=== PATIENT | male | born 1985 | race Caucasian/White ===

== ENCOUNTER 2020-12-18 18:25 | Emergency (ER) | payer OTHER, SELFPAY ==
[2020-12-18] VITALS (14 sets, daily range): BP systolic 133–162; BP diastolic 80–111; PULSE 68–81; RESP 15–23; TEMP 36.6; O2SAT 95–99
--- NOTE | ~2020-12-18 | CT_ITS ---
EXAMINATION: CT abdomen pelvis w con DATE: 12/18/2020 22:06 INDICATION: Left-sided abdominal pain TECHNIQUE: Computed tomography (CT) of the abdomen and pelvis was performed with 100 cc Omnipaque 350 intravenous contrast. The dose-length product was 1175.83 mGy-cm. Automated exposure control and ite rative reconstruction technique were employed. COMPARISON: None. FINDINGS: Lung bases are normal. Heart size normal. No significant pleural or pericardial effusion. N o significant vascular abnormality. No lymphadenopathy. No free air or free fluid. Nonobstructive bowel gas pattern. Colonic diverticulosis without evidence for diverticulitis. Normal appendix. Fatty infiltration of the liver. The spleen, pancreas, adrenal glands and kidneys are unrem arkable. Gallbladder is present. No acute osseous abnormality. There is mild lumbar spondylosis at L5 -S1. IMPRESSION: 1. No acute abdominal abnormality. Reviewed, dictated and finalized at location A.
[2020-12-18 19:21] LABS: Basophils Absolute Auto 0.1 K/mm3 (0.0-0.1); Basophils Percent Auto 0.7 % (0.2-1.2); Eosinophils Absolute Auto 0.2 K/mm3 (0-0.3); Hemoglobin 14.8 g/dL (14.0-18.0); Immature Granulocyte Absolute 0.07 K/mm3 (0.00-0.031); Immature Granulocyte Percent A 0.9 % (0-0.5); Lymphocytes Absolute Auto 1.88 K/mm3 (0.9-3.2); Lymphocytes Percent Auto 23.1 % (18.3-44.2); Mean Corpuscular HGB Conc 35.2 g/dl (32-36); Mean Corpuscular Hemoglobin 32.6 pg (26-34); Mean Corpuscular Volume 92.5 fl (80-100); Mean Platelet Volume 8.9 fl (7.4-10.4); Monocytes Absolute Auto 0.7 K/mm3 (0.1-0.6); Monocytes Percent Auto 8.9 % (2.6-8.5); Neutrophils Absolute Auto 5.2 K/mm3 (1.3-6.7); Neutrophils Percent Auto 64.4 % (45.5-73.1); Platelet Count Result 260 k/mm3 (150-375); Red Blood Count 4.54 M/mm3 (4.6-6.20); Red Cell Distribution Width 11.7 % (11.5-14.5); White Blood Count 8.1 K/mm3 (4.5-10.0)
[2020-12-18 19:34] LABS: Alanine Aminotransferase 57 U/L (4-50); Alkaline Phosphatase 81 U/L (38-126); Anion Gap 12 mmol/L (8-16); Aspartate Amino Transferase 29 U/L (17-59); Bilirubin,Total 0.4 mg/dL (0.2-1.3); Blood Urea Nitrogen 15 mg/dL (9-20); Calcium 9.5 mg/dL (8.4-10.2); Carbon Dioxide 28 mmol/L (22-30); Chloride 99 mmol/L (98-107); Estimated CRCL calculation 162 ml/min; Estimated Glomerular Filt Rate > 60; Glucose 148 mg/dL (65-110); Lipase 248 U/L (23-300); Potassium 3.8 mmol/L (3.4-5.0); Sodium 139 mmol/L (137-145)
--- NOTE | 2020-12-18 20:36 | PC.NURSE ---
Addendum entered by Kari Holly RN 12/18/20 21:03: Pt also reports 5-6 episodes of diarrhea yesterday and pain generalized to entire abd. Original Note: Pt here c/o 2 days of abd pain that radiates to his entire abd and wraps around both sides of his back. no s/s of distress.
--- NOTE | 2020-12-18 20:38 | ED.GENADULT ---
HPI - General Adult General Chief complaint: Abdominal Pain Stated complaint: ABd pain Time Seen by Provider: 12/18/20 20:25 History of Present Illness HPI narrative: Patient is a 35-year-old male who presents ER with abdominal pain x2 days. Located in the epigastrium and left side of the abdomen. Radiates to his back. Associate with diarrhea x7 2 days ago. He took some Imodium. He has no fevers or chills or sweats. No urinary frequency urgency or dysuria. No hematuria, reports has history of hematuria that had no diagnosis. No known sick contacts. Reports nausea without vomiting. Has had decreased appetite. Related Data Allergies Allergy/AdvReac Type Severity Reaction Status Date / Time clarithromycin Allergy Unknown Rash Verified 09/01/16 17:24 Review of Systems Review of Systems: All systems reviewed & are unremarkable except as noted in HPI and below Constitutional: Constitutional: Denies chills, Denies fever(s) and Denies weakness ENT: Denies nasal congestion and Denies sore throat Cardiovascular: Cardiovascular: Denies chest pain, Denies rapid heart rate and Denies radiating jaw, neck or arm pain Gastrointestinal: Gastrointestinal: Reports abdominal pain, Reports diarrhea, Reports nausea and Denies vomiting Genitourinary: Genitourinary: Denies oliguria, Denies dysuria, Denies testicular pain and Denies urinary frequency PMFSH Past Medical History Medical History (Updated 12/18/20 @ 22:55 by Frederick Sellers MD) Healthy adult male Surgical History Surgical History (Updated 12/18/20 @ 20:40 by Frederick Sellers MD) No history of previous surgery Social History Social History (Updated 12/18/20 @ 20:40 by Frederick Sellers MD) Smoking status: Never smoker Exam Narrative: GENERAL: Well-appearing, well-nourished, and in no acute distress. HEAD: Normocephalic, atraumatic. EYES: PERRL and EOMI. CHEST: Clear to auscultation. No respiratory distress. HEART: Regular rate and rhythm. Normal peripheral pulses. ABDOMEN: Soft, mild tenderness left lower quadrant, nondistended. EXTREMITIES: Normal range of motion. No edema. SKIN: Warm, dry, no rash. NEURO: Alert and oriented x3. PSYCH: Normal mood and affect. Course Course Emergency Course: Unremarkable evaluation. Informed the results. Discharge home Vital Signs Vital signs: Vital Signs Temperature 97.8 F 12/18/20 19:11 Pulse Rate 80 12/18/20 19:11 Respiratory Rate 18 12/18/20 19:11 Blood Pressure 162/111 H 12/18/20 19:11 Pulse Oximetry 99 12/18/20 19:11 Temperature 97.8 F 12/18/20 19:11 Pulse Rate 76 12/18/20 22:16 Respiratory Rate 17 12/18/20 22:16 Blood Pressure 133/83 12/18/20 22:16 Pulse Oximetry 99 12/18/20 22:16 Medical Decision Making Vital Signs Vital Signs: Vital Signs Temperature 97.8 F 12/18/20 19:11 Pulse Rate 80 12/18/20 19:11 Respiratory Rate 18 12/18/20 19:11 Blood Pressure 162/111 H 12/18/20 19:11 Pulse Oximetry 99 12/18/20 19:11 Temperature 97.8 F 12/18/20 19:11 Pulse Rate 76 12/18/20 22:16 Respiratory Rate 17 12/18/20 22:16 Blood Pressure 133/83 12/18/20 22:16 Pulse Oximetry 99 12/18/20 22:16 Lab Data Result diagrams: 12/18/20 19:14 12/18/20 19:14 Labs: Lab Results 12/18/20 12/18/20 12/18/20 Range/Units 19:14 19:14 20:43 WBC 8.1 (4.5-10.0) K/mm3 RBC 4.54 L (4.6-6.20) M/mm3 Hgb 14.8 (14.0-18.0) g/dL Hct 42.0 (42.0-52.0) % MCV 92.5 (80-100) fl MCH 32.6 (26-34) pg MCHC 35.2 (32-36) g/dl RDW 11.7 (11.5-14.5) % Plt Count 260 (150-375) k/mm3 MPV 8.9 (7.4-10.4) fl Immature Gran % (Auto) 0.9 H (0-0.5) % Neut % (Auto) 64.4 (45.5-73.1) % Lymph % (Auto) 23.1 (18.3-44.2) % [place] % (Auto) 8.9 H (2.6-8.5) % Eos % (Auto) 2.0 (0-4.4) % Baso % (Auto) 0.7 (0.2-1.2) % Lymph # (Auto) 1.88 (0.9-3.2) K/mm3 [place] # (Auto) 0.7 H
[2020-12-18] MEDS: SODIUM CHLORIDE 0.9% IV 1,000 ML 999 ML IV CONT (20:54)
[2020-12-18] MEDS: MORPHINE SULFATE (*CRX) 4 MG/ML INJ IV PUSH (20:55)
[2020-12-18] MEDS: ONDANSETRON INJ 4 MG/2 ML VIAL IV PUSH (20:55)
[2020-12-18 20:56] LABS: Add Urine Microscopic? YES; Appearance Urine Cloudy (Clear); Bilirubin Urine Negative (Negative); Blood Urine Negative (Negative); Color Urine Yellow (Yellow); Glucose Urine UA Negative (Negative); Ketones Urine Trace mg/dL (Negative); Leukocyte Esterase Ur Negative LEU/UL (Negative); Mucus Urine Heavy /lpf; Nitrate Urine Negative (Negative); Protein Urine 1+ mg/dL (Negative); Specific Grav Ur 1.028 (1.001-1.035); Squamous Epithelial Cell Urine Rare /hpf (Few); Urobilinogen Urine Negative mg/dL (<2.0); WBC Urine 0-3 /hpf
[2020-12-18] MEDS: SIMETHICONE 125 MG CHEW TAB PO (23:07)
[2020-12-18] MEDS: DICYCLOMINE HCL INJ 20 MG/2 ML VIAL IM (23:07)
== END 2020-12-18 23:19 | disposition home or self-care (01) ==
PROVIDERS: Emergency Provider Emergency Medicine; PCP Internal Medicine Geriatric Medicine
DX: R10.32 Left lower quadrant pain (principal)
CPT/HCPCS: 36415; 74177; 80053; 81001; 83690; 85025; 96361; 96372; 96374; 96375; 99284; A9270; J0500; J2270; J2405; J7030; Q9967